=== PATIENT | female | born 1970 | race Caucasian/White ===

== ENCOUNTER 2018-10-07 08:00 | Outpatient (CLI) | payer BC | END 2018-10-07 09:00 | disposition home or self-care (01) | LOC: D.MAMMO 08:00 | PROVIDERS: ATTEND Nurse Practitioner Family | DX: Z12.31 Encounter for screening mammogram for malignant neoplasm of breast (principal) ==

== ENCOUNTER 2020-09-22 07:14 | Day surgery (SDC) | payer OTHER ==
[~2020-09-22] VITALS: Ht 172.7 cm; Wt 130.6 kg
--- NOTE | ~2020-09-22 | HEMODYNAMI ---
PATIENT:CAROLE BECKFORD MEDICAL RECORD: [id number] : 72 LOCATION:[facility] ADMISSION DATE: 09/22/20 Generatedon:19:32 Patient name: CAROLE BECKFORD Patient #: [id number] SSN: [id number] : 1970 Date of study: 09/22/2020 Page: Of Hemodynamic Procedure Report Patient Data Patient Demographics Procedure consent was obtained First Name: CAROLE Gender: Female Last Name: ANALY : 1970 Patient #: [id number] Age: 50 year(s) Race: SSN: [id number] Additional ID: [id number] Contact details [address]: [address] [place] [address] [place] State: [place] City: [place] Zip code: [address] Past Medical History Allergies Allergen Reaction Date Comments Reported Other allergy 09/22/2020 codeine Admission Admission Data Admission Date: 09/22/2020 Admission Time: 7:14 Arrival Date: 09/22/2020 Arrival Time: 0:00 Admit Source: Other Insurance Payor: Private health insurance [facility] #: [id number] Height (in.): 68 BSA: 2.39 (m2) Height (cm.): 172.72 BMI: 43.79 (kg/m2) Weight (lbs.): 287.99 Weight (kg.): 130.63 Lab Results Lab Result Date: 09/22/2020 Lab Result Time: 0:00 Biochemistry Name Units Result Min Max BUN mg/dl 19 --(----)*- 7 18 Creatinine mg/dl 0.8 --(-*--)-- 0.6 1.3 eGFR ml/min 81 *-(----)-- 90 120 NONAFRICAN Procedure Procedure Types Cath Procedure Sedation Charges Moderate Sedation 25-39 minutes Peripheral Cath Diagnostic Procedure Sales Promotion Representative Peripheral Procedures AFRO Diagnostic Procedure Description Procedure Date Procedure Date: 09/22/2020 Procedure Start Time: 9:23 Procedure End Time: 9:31 Procedure Staff Name Function Gene Mccabe MD Performing Physician Meera Piper RT Monitor Liyah Marquez RT Scrub Delmar Castañeda RN Nurse Procedure Data Cath Procedure Fluoroscopy Diagnostic fluoroscopy Total fluoroscopy Time: 0.5 time: 0.5 min min Diagnostic fluoroscopy Total fluoroscopy dose: 312 dose: 312 mGy mGy Contrast Material Contrast Material Type Amount (ml) Isovue 370 114 Entry Location Entry Primary Successful Side Size Upsize Upsize Entry Closure Succes sful Closure Location (Fr) 1 (Fr) 2 (Fr) Remarks Device Remarks Femoral Right 5 Fr Exoseal artery Estimated blood loss: 5 ml Diagnostic catheters Device Type Used For End Catheter Placement DIAGNOSTIC UF 5Fr Procedure catheter ([id number]) Procedure Complications No complications Procedure Medications Medication Administration Route Dosage 0.9% NaCl I.V. 100 ml/hr Oxygen etCO2 Nasal cannula 2 l/min Heparin Flush Bag added to field 2 bags (1000units/500ml NS) Lidocaine 2% added to field 20 Versed I.V. 2 mg Fentanyl I.V. 100 mcg Versed I.V. 1 mg Versed I.V. 1 mg Hemodynamics Rest BSA: 2.39 (m2) O2 Consumption: Estimated: 241.52 (ml/min) O2 Consumption indexed : Estimated:101.05 (ml/min/m) Heart Rate: 77 (bpm) Snapshots Pre Cath Intra NCS Post Cath Vital Signs Time Heart Resp SPO2 etCO2 NIBP (mmHg) Rhythm Pain Sedation Rate (ipm) (%) (mmHg) Status Level (bpm) 8:46:14 65 13 100 38.8 133/68(100) NSR 0 (11) 10(A) , No pain 8:50:20 67 11 100 12.6 116/70(90) NSR 0 (11) 10(A) , No pain 8:54:32 64 11 100 45.5 121/65(86) NSR 0 (11) 10(A) , No pain 8:58:44 65 11 100 44 122/60(87) NSR 0 (11) 10(A) , No pain 9:02:58 62 11 100 43.3 119/64(87) NSR 0 (11) 10(A) , No pain 9:07:12 63 13 100 20.1 121/64(86) NSR 0 (11) 10(A) , No pain 9:11:24 63 10 100 20.9 110/68(84) NSR 0 (11) 10(A) , No pain 9:15:31 63 12 100 29 123/67(84) NSR 0 (11) 10(A) , No pain 9:19:41 64 10 100 20.9 120/59(86) NSR 0 (11) 10(A) , No pain 9:23:55 67 17 100 43.3 113/64(80) NSR 0 (11) 10(A) , No pain 9:28:07 69 13 100 26.8 115/63(86) NSR 0 (11) 10(A) , No pain 9:32:17 65 13 100 40.3 130/72(98) NSR 0 (11) 10(A) , No pain Medications Time Medication Route Dose Verified Delivered Reason Notes Effe ctiveness by by 8:45:28 0.9% NaCl I.V. 100 Delmar Delmar Per ml/hr Garry Castañeda physician RN RN 8:45:43 Oxygen etCO2 2 Delmar Delmar for low 02 Nasal l/min Lorigan Lorigan sats cannula RN RN 8:45:53 Heparin Flush added 2 Delmar Delmar used for Bag to bags Lorigan Lorigan procedure (1000units/500ml field RN RN NS) 8:46:03 Lidocaine 2% added 20ml Delmar Delmar for local to vial Lorigan Lorigan anesthetic field RN RN 9:04:33 Versed I.V. 2 mg Delmar Delmar for Lorigan Lorigan sedation RN RN 9:04:41 Fentanyl I.V. 100 Delmar Delmar for mcg Lorigan Lorigan sedation RN RN 9:17:33 Versed I.V. 1 mg Delmar Delmar for Lorigan Lorigan sedation RN RN 9:25:18 Versed I.V. 1 mg Delmar Delmar for Lorigan Lorigan sedation RN seed analyst Log Time Note 8:31:58 Informed consent obtained and on chart 8:32:15 Diagnostic Cath Status : Elective 8:32:30 Admit Source: Other 8:32:34 Procedure Status Peripheral. 8:32:36 Liyah Marquez RT(R) sent for patient. Start room use. 8:32:42 Time tracking: Regular hours (M-F 7:00 - 5:00) 8:32:46 Plan of Care:Hemodynamics will remain stable., Cardiac rhythm will remain stable., Comfort level will be maintained., Respiratory function will remain adequate., Patient/ family verbilizes understanding of procedure., Procedure tolerated without complication., Recovers from procedure without complications.. 8:32:55 H&P Date Dictated: 09/16/2020 Within 30 days and on chart.. 8:32:56 Pre-procedure instructions explained to patient. 8:32:57 Pre-op teaching completed and patient verbalized understanding. 8:32:59 Family in waiting room. 8:33:00 Patient NPO since Midnight. 8:33:14 Patient allergic to Other allergycodeine 8:33:47 Arrival Date: 09/22/2020 12:00:00 AM 8:33:50 Insurance Payor : Private health insurance 8:34:15 Patient Height : 68 inches 8:34:18 Patient Weight : 287.99 lbs 8:35:12 Lab Result : eGFR NONAFRICAN 81 ml/min 8:35:12 Lab Result : Creatinine 0.8 mg/dl 8:35:12 Lab Result : BUN 19 mg/dl 8:36:11 Patient received from Pre/Post Procedure Room to CCL 1 Alert and oriented. Tansferred to table in Supine position. 8:36:19 Warm blankets applied, and jorge hugger turned on for patient comfort. 8:36:19 Correct patient and procedure confirmed by team. 8:36:20 ECG and BP/O2 sat monitors applied to patient. 8:36:22 Full Disclosure recording started 8:44:58 Is the patient allergic to Iodine/contrast media? No. 8:45:01 Was the patient premedicated? Yes 8:45:02 Is patient on blood thinner?No 8:45:04 Patient diabetic? No. 8:45:05 If diabetic: On Metformin? N/A 8:45:07 Vital chart was started 8:45:08 Baseline sample Acquired. 8:45:20 HCG/Urine : completed and on chart, negative 8:45:22 ----Pre-sedation anethsthesia assessment.---- 8:45:24 Previous problem with sedation/anesthesia? No ? 8:45:26 Snore? Yes 8:45:27 Sleep apnea? Unknown 8:45:28 0.9% NaCl 100 ml/hr I.V. was administered by Delmar Castañeda RN; Per physician; Verbal order read back and verified. 8:45:28 Deviated septum? No 8:45:29 Opens mouth fully? Yes 8:45:30 Sticks out tongue? Yes 8:45:32 Airway obstruction? No ? 8:45:34 Dentures? No ? 8:45:43 Oxygen 2 l/min etCO2 Nasal cannula was administered by Delmar Castañeda RN; for low 02 sats; Verbal order read back and verified. 8:45:44 Patient pain scale 0/10 ?. 8:45:48 IV patent on arrival in left antecubital with 0.9% NaCl at [facility]. 8:45:53 Heparin Flush Bag (1000units/500ml NS) 2 bags added to field was administered by Delmar Castañeda RN; used for procedure; Verbal order read back and verified. 8:45:53 Lab results completed and on chart. 8:45:57 Bilateral groins area was prepped with chlora-prep and draped in sterile fashion 8:45:58 Alarms reviewed by R. N. 8:45:59 Sharps counted by scrub and verified by R.N. 8:46:02 Use device set Femoral Dx 8:46:03 Lidocaine 2% 20ml vial added to field was administered by Delmar Castañeda RN; for local anesthetic; Verbal order read back and verified. 8:46:04 ACIST Syringe (91945) opened to sterile field. 8:46:05 Bag Decanter () opened to sterile field. 8:46:05 Medline Cath Pack ([id number]) opened to sterile field. 8:46:07 ACIST Hand Control (40604) opened to sterile field. 8:46:07 ACIST Manifold (62496) opened to sterile field. 8:46:08 Tegaderm 4 x 4 (1626W) opened to sterile field. 8:46:10 EMERALD Guide Wire (460-926) opened to sterile field. 8:46:11 SHEATH 5FR [place] ([id number]) opened to sterile field. 8:46:19 Rhythm: sinus rhythm 8:46:41 BILAT LEGS HURT BUT RIGHT A LITTLE MORE. 9:02:00 --------ALL STOP TIME OUT------ 9:02:02 Final Timeout: patient, procedure, and site verified with staff and physician. All members of the team are in agreement. 9:02:05 Bilateral groins site verified by team. 9:02:07 Fire Safety Assessment: A--An alcohol-based skin anteseptic being used preoperatively., C--Open oxygen or nitrous oxide is being used., D--An ESU, laser, or fiber-optic light is being used. 9:02:09 Physical assessment completed. ASA score P 2 - A patient with mild systemic disease as per Gene Mccabe MD. 9:02:11 2) 60-89 Mildly reduced kidney function, and other findings (as for stage 1) point to kidney disease. 9:02:14 Maximum allowable contrast dose (3.7 X eGFR X 0.75)225 ml. 9:02:16 Sedation plan: IV Moderate Sedation Medication:Versed, Fentanyl 9:04:33 Versed 2 mg I.V. was administered by Delmar Castañeda RN; for sedation; Verbal order read back and verified. 9:04:41 Fentanyl 100 mcg I.V. was administered by Delmar Castañeda RN; for sedation; Verbal order read back and verified. 9:06:01 Zero performed for pressure channel P1 9:06:10 Zero performed for pressure channel P1 9:17:33 Versed 1 mg I.V. was administered by Delmar Castañeda RN; for sedation; Verbal order read back and verified. 9:23:29 Procedure started. 9:23:34 Local anesthetic to right femoral artery with Lidocaine 2% by Gene Mccabe MD.INITIAL ACCESS ONLY 9:24:43 A 5 Fr sheath was inserted into the Right Femoral artery 9:25:10 A DIAGNOSTIC UF 5Fr catheter ([id number]) was advanced over the wire and used for Procedure. 9:25:18 Versed 1 mg I.V. was administered by Delmar Castañeda RN; for sedation; Verbal order read back and verified. 9:26:23 Abdominal Aortagram was performed. 9:26:27 Left leg runoff performed. 9::40 Injector settings: Ml/sec: 10, Volume: 20, 9:26:45 Right leg runoff performed. 9::49 Injector settings: Ml/sec: 10, Volume: 20, 9:28:53 Catheter removed. 9:29:00 EXOSEAL 5Fr (EX500) opened to sterile field. 9:29:09 Sheath removed intact; hemostasis achieved with Exoseal to the Right Femoral artery. 9:29:17 Fluoroscopy time 00.50 minutes. 9::34 Flurop Dose total: 312 9::34 Fluoroscopy dose: 312 mGy 9:29:40 Dose Area Product 15395 mGy/cm. 9:29:54 Contrast amount:Isovue 370 114ml. 9:29:56 Procedure ended.(Physican Out) 9:30:05 Maximum allowable dose exceeded? No. 9:30:06 Sharps counted by scrub and verified by R.N. 9:30:11 Post-op/insertion site Right Femoral artery dressed using a 4 x 4 and Tegaderm. 9:30:16 Post right femoral artery:stable, soft, clean and dry 9:30:22 Post Procedure Pulses reassessed and unchanged 9:30:25 Post procedure: right dorsailis pedis pulse 1+ Palpable, but thready & weak; easily obliterated. 9:30:28 Post-procedure physical assessment completed. ASA score P 2 - A patient with mild systemic disease as per Gene Mccabe MD. 9:30:31 Post procedure rhythm: unchanged. 9::34 Estimated blood loss: 5 ml 9:30:35 Post procedure instruction explained to patient.Patient verbalizes understanding. 9:30:35 Patient needs reinforcement of post procedure teaching. 9:31:12 Procedure type changed to Cath procedure, Sedation Charges, Moderate Sedation 25-39 minutes, Peripheral Cath Diagnostic Procedure, Sales Promotion Representative Peripheral Procedures, AFRO Diagnostic 9:31:14 Procedure and supply charges have been captured, reviewed, submitted and are correct. 9:31:18 Procedure Complication : No complications 9:31:23 AFRO Findings: PVD: mild to moderate (<70%) 9:31:28 Operative report dictated upon procedure completion. 9:31:29 See physician's report for complete and final results. 9:31:30 Report given to Pre/Post Procedure Room. 9:31:32 Patient transfered to Pre/Post Procedure Room with Stretcher. 9:31:35 Procedure ended. 9:31:35 Full Disclosure recording stopped 9:31:41 End room use (Document Last) 9:32:11 End room use (Document Last) 9:32:35 End room use (Document Last) 9:32:52 Vital chart was stopped Device Usage Item Name Manufacture Quantity Catalog Hospital Part Current Minimal L ot# / Number Charge Number Stock Stock Serial# Code ACIST Acist 1 80717 173376 610363 [id number] 20 Syringe Medical (35360) Systems Inc Bag Microtek 1 2001S 381067 41762 359579 5 Decanter Medical Inc. () Medline Medline 1 [id number] 825028 21874 600678 5 Cath Pack ([id number]) ACIST Hand Acist 1 98693 708063 124339 230245 5 Control Medical (80273) Systems Inc ACIST Acist 1 49144 188430 964640 218625 5 Manifold Medical (20415) Systems Inc Tegaderm 4 3M 1 1626W 854189 253651 536091 5 x 4 (1626W) EMERALD Cardinal 1 502455 517131 293339 737003 5 Guide Wire [facility] (502455) SHEATH 5FR Terumo 1 [id number] 095382 139135 658042 5 [place] (YZD290) DIAGNOSTIC Cardinal 1 [id number] 815146 501159 358912 10 UF 5Fr Health catheter ([id number]) EXOSEAL 5Fr Cardinal 1 EX500 728822 673738 009549 10 (EX500) Health Signature Audit [place] Stage Time Signature Unsigned Intra-Procedure 09/22/2020 Meera Piper 9:32:11 AM RT(R) Intra-Procedure 09/22/2020 Delmar 9:32:35 AM Garry RN Intra-Procedure 09/22/2020 Gene Lopez 9:32:50 AM Bassem WHALEY Signatures Performing Physician : Signature : Gene Mccabe MD Date : Time : Monitor : Meera Piper Signature : RT Date : Time : Nurse : Delmar Lorigan Signature : RN Date : Time : [place] [address] [facility] [place] [address]
[2020-09-22] MEDS ORDERED: TYLENOL ARTHRI650 MG PO (07:39)
[2020-09-22 08:02] VITALS: BP 142/106; Ht 172.7 cm; Wt 130.6 kg
[2020-09-22 08:24] LABS: HCG SERUM NEGATIVE (NEGATIVE)
[2020-09-22 08:29] LABS: ALT (SGPT) 33 U/L (10-68); CALC OSMOLALITY 278 mosm/kg (275-300); CALCIUM 8.6 mg/dL (8.5-10.1); CARBON DIOXIDE 26.5 mmol/L (21.0-32.0); CHLORIDE - SERUM 104 mmol/L (98-107); CHOL - HDL RATIO 2.3 ratio (2.3-4.1); CHOLESTEROL, TOTAL 163 mg/dL (0-200); CREATININE - SERUM 0.8 mg/dL (0.6-1.3); GLUCOSE 108 mg/dL (74-106); HDL CHOLESTEROL 70 mg/dL (32-96); LDL CHOLESTEROL 84 mg/dL (0-100); LDL-HDL RATIO 1.2 ratio (1.5-3.5); POTASSIUM - SERUM 3.9 mmol/L (3.5-5.1); SODIUM 138 mmol/L (136-145); TRIGLYCERIDE 46 mg/dL (30-200); UREA NITROGEN 19 mg/dL (7-18); eGFR NON AFRICAN AMERICAN 81 mL/min (90-120)
[2020-09-22 08:43] LABS: BASOPHILS 0.6 % (0-2); HEMATOCRIT 38.2 % (36.0-48.0); HEMOGLOBIN 12.4 g/dL (12-16); IMMATURE GRANULOCYTES 0.2 % (0-5); LYMPHOCYTE ABS# 1.94 10x3/uL (1.18-3.74); LYMPHOCYTES 35.6 % (15-50); MCH 25.8 pg (26.0-34.0); MCHC 32.5 g/dL (31.0-37.0); MCV 79.6 fL (80.0-100.0); MEAN PLATELET VOLUME 11.8 fL (7.4-10.4); MONOCYTES 6.2 % (2-11); NEUTROPHIL ABS# 3.02 10x3/uL (1.56-6.13); NEUTROPHILS 55.4 % (40-80); PLATELET COUNT 212 10x3/uL (130-400); RDW 14.5 % (11.5-14.5); WBC 5.5 10x3/uL (4.8-10.8)
--- NOTE | 2020-09-22 09:43 | NUR ---
PT ARRIVED BY STRETCHER. PLACED ON MONITORS. ASSESSMENT COMPLETED. VSS AT THIS TIME. CALL LIGHT WITHIN REACH.
--- NOTE | 2020-09-22 10:00 | NUR ---
PT RESTING COMFORTABLY. DENIES NAUSEA/PAIN. RIGHT GROIN DRESSING C/D/I. NO S/S OF HEMATOMA NOTED. RIGHT PEDAL PULSE PALPABLE. VSS AT THIS TIME. CALL LIGHT WITHIN REACH. TOLERATING SIPS OF WATER.
--- NOTE | 2020-09-22 10:30 | NUR ---
RIGHT GROIN DRESSING C/D/I. NO S/S OF HEMATOMA NOTED. CALL LIGHT WITHIN REACH. HEAD OF BED INC TO 30 DEGREES. TOLERATED WELL. VSS AT THIS TIME. SET UP WITH SANDWICH TRAY AND DRINK.
--- NOTE | 2020-09-22 10:50 | NUR ---
PT ON BEDPAN. VOIDED APPROX 600cc OF CLEAR YELLOW URINE. LATRICE-CARE GIVEN. RIGHT GROIN DRESSING C/D/I. NO S/S OF HEMATOMA NOTED. RIGHT PEDAL PULSE PALPABLE.
--- NOTE | 2020-09-22 11:20 | NUR ---
DISCUSSED DISCHARGE INSTRUCTIONS WITH PT. SHE VOICED UNDERSTANDING. PT INSTRUCTED TO GET UP AND DRESSED AT THIS TIME. PIV D/C'D WITH CATH TIP INTACT. TOLERATED WELL. CALL LIGHT WITHIN REACH. NO ASSISTANCE NEEDED. RIGHT GROIN DRESSING C/D/I. NO S/S OF HEMATOMA NOTED.
--- NOTE | 2020-09-22 11:35 | NUR ---
PT AMBULATED TO RESTROOM. VOIDED WITHOUT DIFFICULTY. STEADY GAIT NOTED. REFUSED WHEELCHAIR. WALKED WITH PT OUT TO HER MOMS VEHICLE. NO S/S OF DISTRESS NOTED. ALL BELONGINGS AND PAPERWORK IN HAND. RIGHT GROIN DRESSING C/D/I.
--- NOTE | 2020-09-23 14:15 | OP ---
PATIENT NAME: CAROLE BECKFORD MEDICAL RECORD: [id number] :72 LOCATION:D.CAT ADMISSION DATE: SURGEON: SOCORRO KAY MD DATE OF OPERATION: 09/22/2020 PROCEDURE: Aortofemoral runoff, right femoral artery approach. PROCEDURE IN DETAIL: The pigtail catheter was placed in the area of the abdominal aorta at the level of the renal arteries. Aortofemoral runoff was performed non-selective engagement of the renal arteries showed no significant stenosis either renal. Abdominal aorta shows no evidence of aneurysm. No evidence of dissection. RIGHT SYSTEM: RIGHT ILIAC SYSTEM: Common internal and external showed no significant stenosis. RIGHT FEMORAL SYSTEM: Including deep, common, superficial single wall was free of disease with good 3-vessel runoff. LEFT SYSTEM: LEFT ILIAC SYSTEM: Including common, internal and external, no significant stenosis. LEFT FEMORAL SYSTEM: Including the deep, common and superficial, no significant stenosis and good 3-vessel runoff. IMPRESSION: No significant abdominal aortic disease. No significant peripheral vascular disease. TRANSINT:[id number] Voice Confirmation ID: [id number] DOCUMENT ID: [id number] SOCORRO KAY MD at 1415 CC: [id number] DICTATION DATE: 09/22/20 0938 HUMID SYSTEM OPERATOR: 09/22/20 1437 [facility] 09/22/20 [place] [id number] [place] [address]
== END 2020-09-22 11:35 | disposition home or self-care (01) ==
LOC: D.CATH 07:14
PROVIDERS: ATTEND Internal Medicine Interventional Cardiology
DX: R06.00 Dyspnea, unspecified (principal); I70.213 Atherosclerosis of native arteries of extremities with intermittent claudication, bilateral legs